=== PATIENT | male | born 1940 | race Caucasian/White ===

== ENCOUNTER 2024-09-25 07:38 | Observation (INO) ==
[2024-09-25] MEDS: NOZIN NASAL SANITIZER TP ONE (07:48)
[2024-09-25] MEDS: NS 1,000 ML IV 1,000 ML ONE ×2 (08:10→12:20)
[2024-09-25] MEDS: ANCEF VIAL 1 GRAM ONE (08:56)
[2024-09-25] MEDS: NS 100 ML IV 100 ML ONE (08:56)
[2024-09-25] MEDS ORDERED: KETAMINE HCL ONE (08:59)
[2024-09-25] MEDS: VERSED ONE (08:59)
[2024-09-25] MEDS: DIPRIVAN VIAL 20 ML ONE ×2 (08:59→13:14)
[2024-09-25] MEDS: PRECEDEX INJ VIAL ONE (08:59)
[2024-09-25] MEDS ORDERED: PRECEDEX INJ VIAL ONE (08:59)
[2024-09-25] MEDS: FENTANYL VIAL INJ 100 mcg ONE ×2 (08:59→13:14)
[2024-09-25] MEDS: EPHEDRINE SULFATE INJ ONE (09:22)
[2024-09-25] MEDS: VISIPAQUE 100 ML ONE (09:26)
[2024-09-25] MEDS: VISIPAQUE 50 ML ONE (09:26)
[2024-09-25] MEDS: HEPARIN SODIUM IN D5W 75,000 UNITS/1,500 ML BAG ONE (09:26)
[2024-09-25] MEDS: MARCAINE 0.5% ONE ×2 (09:26→13:06)
[2024-09-25] MEDS: HEPARIN SODIUM INJ 5000 UNITS ONE (09:27)
[2024-09-25] MEDS: NEO-SYNEPHRINE INJ ONE (09:33)
--- NOTE | 2024-09-25 10:42 | OR.IMMED ---
IMMEDIATE POST-OP NOTE Immediate Post-Op Note Pre-Op Diagnosis: critical ischemia left leg Post-Op Diagnosis: same Procedure: aortogram, arteriogram left leg, could not cross popliteal occlusion Description of Procedure: dictated Surgeon/Oil Refiner: Iraj Findings: Moderately severe disease of the left superficial femoral artery, completely occluded left pop to artery, 1 vessel runoff via the peroneal artery ,I could not get across the occlusion retrogade or antegrade Estimated Blood Loss: < 50 cc Complications: none Discharge Progress Notes: to [facility] , home when ready, f/u 3 weeks , continue all home meds with the addition of aspirin 81 mg daily.
[2024-09-25] MEDS: PEPCID 20 MG VIAL ONE (12:42)
[2024-09-25] MEDS: REGLAN INJ 10 MG VIAL ONE (12:42)
[2024-09-25] MEDS ORDERED: ULTANE GAS IN ONE (12:42)
[2024-09-25] MEDS: QUELICIN (OR ANECTINE) ONE (12:42)
[2024-09-25] MEDS: ZEMURON 100 MG VIAL ONE (12:42)
[2024-09-25 12:52] VITALS: BMI 21.1
[2024-09-25] MEDS ORDERED: ZOFRAN INJ 4 MG VIAL IVP PRN (13:10)
[2024-09-25] MEDS ORDERED: BENADRYL INJ 50 MG VIAL IVP PRN (13:10)
[2024-09-25] MEDS ORDERED: DILAUDID INJ IVP PRN (13:10)
[2024-09-25] MEDS ORDERED: REGLAN INJ 10 MG VIAL IVP PRN (13:10)
[2024-09-25] MEDS ORDERED: BARHEMSYS INJ IVP PRN (13:10)
--- NOTE | 2024-09-25 13:18 | OR.IMMED ---
IMMEDIATE POST-OP NOTE Immediate Post-Op Note Date of surgery/procedure: 09/25/24 Pre-Op Diagnosis: compartmetn syndrome left leg / calf Post-Op Diagnosis: same Procedure: 4 compartment fasciotomy left calf Description of Procedure: dictated Surgeon/Service Technician Copier: Iraj Findings: as above Estimated Blood Loss: < 20 cc Complications: none Progress Notes: tp PACU and to ccu to observe bledding from the fascitomy sites andto observe the left foot and calf
[2024-09-25 13:26] LABS: BASOPHILS % (AUTO) 0.5 % (0.2-1.0); EOSINOPHILS # (AUTO) 0.1 x10^3/uL (0.0-0.2); EOSINOPHILS % (AUTO) 1.9 % (0.9-2.9); HEMATOCRIT 31.6 % (42.0-54.0); HEMOGLOBIN 10.8 g/dL (13.5-18.0); LYMPHOCYTES # (AUTO) 1.3 X10^3/uL (1.3-2.9); LYMPHOCYTES % (AUTO) 18.5 % (21.0-51.0); MEAN CORPUSCULAR HEMOGLOBIN 29.9 pg (27.0-34.0); MEAN CORPUSCULAR VOLUME 87.9 fL (80.0-100.0); MEAN PLATELET VOLUME 7.1 fL (7.4-11.0); MONOCYTES # (AUTO) 0.6 x10^3/uL (0.3-0.8); MONOCYTES % (AUTO) 9.1 % (0.0-13.0); PLATELET COUNT 122 X10^3/uL (150.0-450.0); RED BLOOD COUNT 3.59 X10^6/uL (4.7-6.0); WHITE BLOOD COUNT 7.1 X10^3/uL (3.6-10.0)
[2024-09-25] MEDS: LR 1,000 ML IV 1,000 ML IV SCH (14:26)
[2024-09-25] MEDS: PERCOCET TAB 5/325 MG PO PRN (14:54)
[2024-09-25] MEDS: PERCOCET TAB 5/325 MG ONE (16:04)
[2024-09-25] MEDS: CRESTOR TAB 10 MG PO SCH (20:54)
[2024-09-25] MEDS: NovoLIN R (or HumuLIN R) SUBCUT PRN (20:56)
[2024-09-25] MEDS: SNACK - Diabetic Appropriate PO SCH (20:59)
[2024-09-26 06:00] VITALS: O2SAT 100
[2024-09-26 06:27] LABS: BASOPHILS % (AUTO) 0.6 % (0.2-1.0); EOSINOPHILS # (AUTO) 0.2 x10^3/uL (0.0-0.2); HEMATOCRIT 23.7 % (42.0-54.0); LYMPHOCYTES # (AUTO) 0.8 X10^3/uL (1.3-2.9); LYMPHOCYTES % (AUTO) 12.1 % (21.0-51.0); MEAN CORPUSCULAR HEMOGLOBIN 29.9 pg (27.0-34.0); MEAN CORPUSCULAR HGB CONC 34.6 g/dL (33.0-35.0); MEAN CORPUSCULAR VOLUME 86.5 fL (80.0-100.0); MEAN PLATELET VOLUME 7.3 fL (7.4-11.0); MONOCYTES # (AUTO) 0.6 x10^3/uL (0.3-0.8); MONOCYTES % (AUTO) 9.7 % (0.0-13.0); NEUTROPHILS % (AUTO) 74.6 % (42.0-75.0); PLATELET COUNT 139 X10^3/uL (150.0-450.0); RED BLOOD COUNT 2.74 X10^6/uL (4.7-6.0); WHITE BLOOD COUNT 6.6 X10^3/uL (3.6-10.0)
[2024-09-26 06:48] LABS: HEMOGLOBIN 8.2 g/dL (13.5-18.0)
[2024-09-26 08:12] VITALS: PULSE 104
[2024-09-26] MEDS: ZESTRIL TAB 40 MG PO SCH (08:58)
--- NOTE | 2024-09-26 12:07 | W.DIS.FURT ---
Summary of Discharge Discharge Summary of Date Date of Exam: 09/26/24 Admission Date Date of Admission: 09/25/24 Admission Diagnosis Hospital Course: 84 year old male who has had failed intervention of the right leg arterial reconstruction and yesterday underwent attempted revascularization of the left leg. He has very dense long segment b/l popliteal artery occlusion with 1 vessel runoff via the peroneal arteries . We could get across the occlusion. We planned to discharge him home and see him in follow up but he developed acute pain in the left calf and foot with significant firmness of the left calf consistent with compartment syndrome. He was taken urgently to the operating room where he underwent 4 compartment fasciotomy. He is doing well. His pain is resolved. His feet are warm. His dressing is intact. He will be discharged today and follow up with me on Sunday the 29 of September to assess his wounds. He still will need some other plan for LE revasularization versus observation of his lower extremities as he will require Femoral distal bypasses bilaterally with the peroneal artery as the target. These have significant morbidity. discharged on his usual medications plus Percocet, 5 milligram tablets 1 every 6 hourS PRN pain Vital Signs: Vital Signs (72 hours) 09/25/24 07:58 09/25/24 07:58 09/25/24 10:38 Temperature 97.7 F Pulse Rate 102 H 102 H 89 Respiratory Rate 20 17 Blood Pressure 160/82 127/68 O2 Sat by Pulse Oximetry 98 99 Oxygen Delivery Method Room Air Room Air Oxygen Flow Rate 09/25/24 10:50 09/25/24 11:05 09/25/24 11:20 Temperature Pulse Rate 84 87 81 Respiratory Rate 18 18 17 Blood Pressure 125/64 124/61 122/63 O2 Sat by Pulse Oximetry 98 99 99 Oxygen Delivery Method Room Air Room Air Room Air Oxygen Flow Rate 09/25/24 11:35 09/25/24 11:50 09/25/24 12:05 Temperature Pulse Rate 76 76 78 Respiratory Rate 17 18 18 Blood Pressure 119/60 131/66 128/60 O2 Sat by Pulse Oximetry 99 99 99 Oxygen Delivery Method Room Air Room Air Room Air Oxygen Flow Rate 09/25/24 12:40 09/25/24 14:13 09/25/24 14:14 Temperature Pulse Rate 88 Respiratory Rate Blood Pressure 150/71 O2 Sat by Pulse Oximetry 100 Oxygen Delivery Method Room Air Oxygen Flow Rate 09/25/24 14:14 09/25/24 14:15 09/25/24 13:23 Temperature 97.5 F L 97.0 F L Pulse Rate 93 H 93 H 120 H Respiratory Rate 16 Blood Pressure 149/65 O2 Sat by Pulse Oximetry 100 100 100 Oxygen Delivery Method Aerosol Face Tent Oxygen Flow Rate 09/25/24 13:28 09/25/24 13:33 09/25/24 13:38 Temperature Pulse Rate 119 H 119 H 119 H Respiratory Rate 16 17 17 Blood Pressure 129/71 118/71 128/81 O2 Sat by Pulse Oximetry 100 96 99 Oxygen Delivery Method Aerosol Face Tent Aerosol Face Tent Aerosol Face Tent Oxygen Flow Rate 09/25/24 13:43 09/25/24 13:48 09/25/24 13:53 Temperature Pulse Rate 101 H 101 H 99 H Respiratory Rate 16 16 16 Blood Pressure 128/81 132/76 124/70 O2 Sat by Pulse Oximetry 99 99 99 Oxygen Delivery Method Nasal Cannula Nasal Cannula Nasal Cannula Oxygen Flow Rate 09/25/24 13:58 09/25/24 14:54 09/25/24 15:54 Temperature Pulse Rate 96 H Respiratory Rate 16 20 18 Blood Pressure 139/78 O2 Sat by Pulse Oximetry 99 Oxygen Delivery Method Nasal Cannula Oxygen Flow Rate 09/25/24 14:15 09/25/24 14:30 09/25/24 14:45 Temperature 97.5 F L 97.5 F L Pulse Rate 99 H 91 H 89 Respiratory Rate 17 16 14 Blood Pressure 150/71 149/75 149/75 O2 Sat by Pulse Oximetry 99 100 100 Oxygen Delivery Method Oxygen Flow Rate 09/25/24 15:00 09/25/24 16:08 09/25/24 16:14 Temperature 97.4 F L Pulse Rate 97 H 112 H 102 H Respiratory Rate 18 20 20 Blood Pressure 154/77 133/77 119/71 O2 Sat by Pulse Oximetry 100 100 100 Oxygen Delivery Method Oxygen Flow Rate 09/25/24 17:00 09/25/24 14:30 09/25/24 14:31 Temperature Pulse Rate 91 H 89 89 Respiratory Rate 20 11 L 14 Blood Pressure 109/58 O2 Sat by Pulse Oximetry 100 100 100 Oxygen Delivery Method Oxygen Flow Rate 09/25/24 14:31 09/25/24 14:45 09/25/24 15:00 Temperature Pulse Rate 87 Respiratory Rate Blood Pressure 149/75 154/77 O2 Sat by Pulse Oximetry 100 Oxygen Delivery Method Oxygen Flow Rate 09/25/24 15:00 09/25/24 15:00 09/25/24 15:15 Temperature Pulse Rate 97 H 96 H Respiratory Rate 23 31 H Blood Pressure 154/77 O2 Sat by Pulse Oximetry 100 100 Oxygen Delivery Method Oxygen Flow Rate 09/25/24 15:30 09/25/24 15:30 09/25/24 15:45 Temperature Pulse Rate 112 H 116 H Respiratory Rate Blood Pressure 133/77 O2 Sat by Pulse Oximetry 98 100 Oxygen Delivery Method Oxygen Flow Rate 09/25/24 16:00 09/25/24 16:00 09/25/24 16:15 Temperature Pulse Rate 98 H 98 H Respiratory Rate Blood Pressure 119/71 O2 Sat by Pulse Oximetry 100 100 Oxygen Delivery Method Oxygen Flow Rate 09/25/24 16:30 09/25/24 16:30 09/25/24 16:45 Temperature Pulse Rate 95 H 91 H Respiratory Rate Blood Pressure 109/58 O2 Sat by Pulse Oximetry 100 100 Oxygen Delivery Method Oxygen Flow Rate 09/25/24 17:00 09/25/24 17:00 09/25/24 17:00 Temperature Pulse Rate 94 H Respiratory Rate Blood Pressure 119/61 119/61 O2 Sat by Pulse Oximetry 100 Oxygen Delivery Method Oxygen Flow Rate 09/25/24 17:15 09/25/24 17:30 09/25/24 17:30 Temperature Pulse Rate 94 H 91 H Respiratory Rate Blood Pressure 129/63 O2 Sat by Pulse Oximetry 100 100 Oxygen Delivery Method Oxygen Flow Rate 09/25/24 17:45 09/25/24 18:00 09/25/24 20:55 Temperature 97.6 F Pulse Rate 99 H 102 H Respiratory Rate 20 Blood Pressure 116/56 O2 Sat by Pulse Oximetry 100 98 Oxygen Delivery Method Nasal Cannula Oxygen Flow Rate 2 09/25/24 19:15 09/25/24 19:00 09/25/24 20:00 Temperature 97.5 F L Pulse Rate 103 H 101 H Respiratory Rate 18 18 Blood Pressure 100/55 112/55 O2 Sat by Pulse Oximetry 100 100 Oxygen Delivery Method Nasal Cannula Nasal Cannula Oxygen Flow Rate 2 2 09/26/24 00:00 09/25/24 21:55 09/26/24 04:00 Temperature 97.6 F 97.7 F Pulse Rate 96 H 98 H Respiratory Rate 19 19 20 Blood Pressure 116/58 105/52 O2 Sat by Pulse Oximetry 98 100 Oxygen Delivery Method Nasal Cannula Nasal Cannula Oxygen Flow Rate 2 2 09/25/24 20:30 09/25/24 20:45 09/25/24 21:00 Temperature Pulse Rate 105 H 104 H Respiratory Rate Blood Pressure 108/53 O2 Sat by Pulse Oximetry 100 100 Oxygen Delivery Method Oxygen Flow Rate 09/25/24 21:00 09/25/24 21:15 09/25/24 21:30 Temperature Pulse Rate 96 H Respiratory Rate Blood Pressure 133/62 112/52 O2 Sat by Pulse Oximetry 100 Oxygen Delivery Method Oxygen Flow Rate 09/25/24 21:30 09/25/24 21:45 09/25/24 22:00 Temperature Pulse Rate 95 H 94 H 96 H Respiratory Rate Blood Pressure O2 Sat by Pulse Oximetry 100 100 100 Oxygen Delivery Method Oxygen Flow Rate 09/25/24 22:00 09/25/24 22:15 09/25/24 22:30 Temperature Pulse Rate 129 H 101 H Respiratory Rate Blood Pressure 109/52 O2 Sat by Pulse Oximetry 98 100 Oxygen Delivery Method Oxygen Flow Rate 09/25/24 22:30 09/25/24 22:45 09/25/24 23:00 Temperature Pulse Rate 117 H 100 H Respiratory Rate 21 26 H Blood Pressure 111/59 O2 Sat by Pulse Oximetry 100 100 Oxygen Delivery Method Oxygen Flow Rate 09/25/24 23:01 09/25/24 23:01 09/25/24 23:15 Temperature Pulse Rate 101 H 92 H Respiratory Rate 19 17 Blood Pressure 129/61 O2 Sat by Pulse Oximetry 100 100 Oxygen Delivery Method Oxygen Flow Rate 09/25/24 23:30 09/25/24 23:30 09/25/24 23:45 Temperature Pulse Rate 98 H 90 Respiratory Rate 21 14 Blood Pressure 115/59 O2 Sat by Pulse Oximetry 100 100 Oxygen Delivery Method Oxygen Flow Rate 09/26/24 00:00 09/26/24 00:00 09/26/24 00:15 Temperature Pulse Rate 96 H 97 H Respiratory Rate 19 20 Blood Pressure 116/58 O2 Sat by Pulse Oximetry 100 100 Oxygen Delivery Method Oxygen Flow Rate 09/26/24 00:30 09/26/24 00:31 09/26/24 00:31 Temperature Pulse Rate 98 H 99 H Respiratory Rate 26 H 24 Blood Pressure 114/52 O2 Sat by Pulse Oximetry 100 100 Oxygen Delivery Method Oxygen Flow Rate 09/26/24 00:45 09/26/24 01:00 09/26/24 01:00 Temperature Pulse Rate 89 92 H Respiratory Rate 13 13 Blood Pressure 106/55 O2 Sat by Pulse Oximetry 100 100 Oxygen Delivery Method Oxygen Flow Rate 09/26/24 01:15 09/26/24 01:30 09/26/24 01:30 Temperature Pulse Rate 91 H 93 H Respiratory Rate 13 16 Blood Pressure 100/54 O2 Sat by Pulse Oximetry 100 100 Oxygen Delivery Method Oxygen Flow Rate 09/26/24 01:45 09/26/24 02:00 09/26/24 02:00 Temperature Pulse Rate 85 88 Respiratory Rate 6 L 16 Blood Pressure 92/49 O2 Sat by Pulse Oximetry 100 100 Oxygen Delivery Method Oxygen Flow Rate 09/26/24 02:15 09/26/24 02:23 09/26/24 06:30 Temperature Pulse Rate 87 126 H Respiratory Rate 14 20 Blood Pressure 112/56 O2 Sat by Pulse Oximetry 100 97 Oxygen Delivery Method Oxygen Flow Rate 09/26/24 06:33 09/26/24 06:45 09/26/24 07:00 Temperature Pulse Rate 91 H 98 H Respiratory Rate 14 15 Blood Pressure 109/53 O2 Sat by Pulse Oximetry 100 100 Oxygen Delivery Method Oxygen Flow Rate 09/26/24 07:00 09/26/24 07:18 09/26/24 07:30 Temperature Pulse Rate 112 H 129 H 103 H Respiratory Rate 25 H 39 H 31 H Blood Pressure O2 Sat by Pulse Oximetry 99 100 Oxygen Delivery Method Oxygen Flow Rate 09/26/24 07:31 09/26/24 07:31 09/26/24 07:45 Temperature Pulse Rate 122 H 115 H Respiratory Rate 33 H 28 H Blood Pressure 103/59 O2 Sat by Pulse Oximetry 86 L 96 Oxygen Delivery Method Oxygen Flow Rate 09/26/24 08:00 09/26/24 08:00 09/26/24 07:00 Temperature 97.7 F Pulse Rate 104 H Respiratory Rate 24 Blood Pressure 97/51 O2 Sat by Pulse Oximetry 100 Oxygen Delivery Method Nasal Cannula Oxygen Flow Rate 2 Labs: Laboratory Last Values WBC 6.6 X10^3/uL (3.6-10.0) 09/26/24 05:54 RBC 2.74 X10^6/uL (4.7-6.0) L 12/13/24 05:54 Hgb 8.2 g/dL (13.5-18.0) L D 09/26/24 05:54 Hct 23.7 % (42.0-54.0) L 09/26/24 05:54 MCV 86.5 fL (80.0-100.0) 09/26/24 05:54 MCH 29.9 pg (27.0-34.0) 09/26/24 05:54 MCHC 34.6 g/dL (33.0-35.0) 09/26/24 05:54 RDW 15.0 % (11.6-16.5) 09/26/24 05:54 Plt Count 139 X10^3/uL (150.0-450.0) L 09/26/24 05:54 MPV 7.3 fL (7.4-11.0) L 09/26/24 05:54 Neut % (Auto) 74.6 % (42.0-75.0) 09/26/24 05:54 Lymph % (Auto) 12.1 % (21.0-51.0) L 09/26/24 05:54 [place] % (Auto) 9.7 % (0.0-13.0) 09/26/24 05:54 Eos % (Auto) 3.0 % (0.9-2.9) H 09/26/24 05:54 Baso % (Auto) 0.6 % (0.2-1.0) 09/26/24 05:54 Neut # (Auto) 5.0 x10^3/uL (2.2-4.8) H 09/26/24 05:54 Lymph # (Auto) 0.8 X10^3/uL (1.3-2.9) L 09/26/24 05:54 [place] # (Auto) 0.6 x10^3/uL (0.3-0.8) 09/26/24 05:54 Eos # (Auto) 0.2 x10^3/uL (0.0-0.2) 09/26/24 05:54 Baso # (Auto) 0.0 X10^3/uL (0.0-0.1) 09/26/24 05:54 Absolute Nucleated RBC 0.0 /100WBC 09/26/24 05:54 POC Glucose (mg/dL) 198 mg/dL (65-99) H 09/26/24 06:21 Blood Type A POSITIVE 09/25/24 08:09 Antibody Screen Negative 09/25/24 08:09 Reason For Visit: AORTOGRAM, ARTERIOGRAM LEFT LEG Discharge Diagnosis All Active Problems (Updated 09/26/24 @ 11:53 by Anatoliy Galo) Compartment syndrome of lower extremity (Acute) SSS (sick sinus syndrome) (Acute) Pacemaker (Acute) Abdominal wall hernia (Acute) GERD (gastroesophageal reflux disease) (Acute) Hypertension (Acute) Mixed hyperlipidemia (Acute) Type 2 diabetes mellitus (Acute) H/O type 2 diabetes mellitus (Acute) H/O mixed hyperlipidemia (Acute) H/O gastroesophageal reflux (GERD) (Acute) H/O essential hypertension (Acute) CAD (coronary artery disease) of artery bypass graft (Acute) Plan of Treatment: Continue with present treatment and follow up plan. Pt is to keep follow up appointment as instructed and take medications as ordered. Discharge Medications Discharge Medications: No Known Allergies Allergy (Verified 02/14/24 09:43) Discharge Disposition Assessment: SEE HOSPITAL COURSE Discharge Plan Discharge Plan Hospital Course: 84 year old male who has had failed intervention of the right leg arterial reconstruction and yesterday underwent attempted revascularization of the left leg. He has very dense long segment b/l popliteal artery occlusion with 1 vessel runoff via the peroneal arteries . We could get across the occlusion. We planned to discharge him home and see him in follow up but he developed acute pain in the left calf and foot with significant firmness of the left calf consistent with compartment syndrome. He was taken urgently to the operating room where he underwent 4 compartment fasciotomy. He is doing well. His pain is resolved. His feet are warm. His dressing is intact. He will be discharged today and follow up with me on Sunday the 29 of September to assess his wounds. He still will need some other plan for LE revasularization versus observation of his lower extremities as he will require Femoral distal bypasses bilaterally with the peroneal artery as the target. These have significant morbidity. discharged on his usual medications plus Percocet, 5 milligram tablets 1 every 6 hourS PRN pain Patient Disposition: HOME, SELF-CARE Condition: Stable Health Concerns: Post Hospitalization: new medications and changes needed to prevent readmission or further decline. Pt educated and given instructions on all concerns. Care Plan Goals: Problem: Pain/Alteration in Comfort Goal: Improve/ Resolve Pain; Achieve Pain Tolerance Instructions: Take pain medications as prescribed. Contact your primary care provider if your pain is unrelieved or worsens. Follow up with primary care provider as directed. Plan of Treatment: Continue with present treatment and follow up plan. Pt is to keep follow up appointment as instructed and take medications as ordered. Assessment: SEE HOSPITAL COURSE Prescription drug monitoring program results: PDMP reviewed and no concerns identified Prescriptions: New oxycodone-acetaminophen [Percocet] 5-325 mg tablet 1 tab PO Q6H MDD 4 PRNQty: 20 0RF Continued (DME) OneTouch Verio test strips Strip See Rx Instructions .ROUTE TID Qty: 100 10RF Rx Instructions: As directed check glucose once or twice or as needed lisinopril 40 mg tablet 40 mg PO QDAY 90 Days Qty: 90 1RF Repatha SureClick 140 mg/mL pen injector 140 mg subcut Q2W 28 Days Qty: 2 5RF Januvia 100 mg tablet 100 mg PO QDAY 90 Days Qty: 90 2RF rosuvastatin 20 mg tablet 20 mg PO QDAY 90 Days Qty: 90 1RF insulin glargine [Lantus Solostar U-100 Insulin] 100 unit/mL (3 mL) insulin pen 25 unit subcut BID 28 Days Qty: 30 1RF dapagliflozin propanediol [Farxiga] 5 mg tablet 5 mg PO QDAY clopidogrel 75 mg tablet 75 mg PO QDAY ketoconazole 2 % cream 1 applic topical BID omeprazole 20 mg capsule,delayed release(DR/EC) 20 mg PO QDAY Qty: 90 0RF carvedilol 6.25 mg tablet 6.25 mg PO BID 90 Days Qty: 180 0RF Rx Instructions: must administer with a meal/food Orders to Discharge Patient Discharge Orders: Discharge (Routine); Ordered 09/26/24 Ordered By: Anatoliy Galo Follow ups/Referrals Follow ups/Referrals: Anatoliy Galo [STAFF PHYSICIAN] - 09/29/24 1:45 pm Instructions Instructions: Aspirin, ASA chewable tablets, Monitored Anesthesia Care, Endovascular Therapy for Peripheral Vascular Disease: What to Know After Activity Restrictions/Additional Instructions: POST OPERATIVE INSTRUCTIONS: (1) A RESPONSIBLE ADULT SHOULD REMAIN WITH YOU TODAY, YOU SHOULD BE ASSISTED TO THE BATHROOM FOR 6-8 HOURS. REST QUIETLY THE REMAINDER OF THE DAY. (2) DEEP BREATHING AND COUGHING EXERCISES FOR THE NEXT 6-8 HOURS. (3)SMOKE ONLY IF SOMEONE IS WITH YOU FOR THE NEXT 12 HOURS. (4) DIET TOLERATED, DRINK PLENTY OF WATER. (5) DO NOT DRIVE YOUR AUTOMOBILE OR OPERATE MACHINERY FOR 12-18 HOURS AFTER RECEIVING A GENERAL ANESTHETIC OR WHILE TAKING NARCOTIC PAIN MEDICATION. (6) SOME ANESTHETIC AGENTS AND MEDICATION TAKEN FOR PAIN MAY CAUSE NAUSEA. IF NAUSEA PERSISTS FOR SEVERAL HOURS AT HOME, CALL YOUR DOCTOR. (7) LIGHT ACTIVITIES. (8) OBSERVE OPERATIVE AREA FOR SIGNS OF INFECTION: REDNESS, SWELLING, FOUL ODOR, DRAINAGE, AND NOTIFY FOR ANY CONCERNS OR FEVER OVER 101.0. (9) KEEP OPERATIVE AREA CLEAN AND DRY. YOU MAY REMOVE DRESSING AFTER 24 HOURS AND SHOWER/BATH WITH ANTIBACTERIAL SOAP. (10) RESUME ALL PREVIOUS MEDICATIONS PRESCRIBED BY YOUR DOCTOR. (11) TAKE PAIN MEDICATIONS PRESCRIBED. (12) Begin taking aspirin 81 mg by mouth daily (12) OBSERVE AFFECTED AREA FOR CIRCULATION, CHANGE OF COLOR, NUMBNESS OR TINGLING, COLDNESS, INCREASED PAIN, OR BLEEDING. FOR ANY COMPLICATIONS PLEASE CALL DR. GALO @ PRIOR TO GOING TO EMERGENCY DEPARTMENT. FOLLOW UP WITH DR. GALO ON October 20 at 10:45am Stand Alone Forms: Find Help Web Site, Post Hospital Follow Up Care
[2024-09-26 12:42] VITALS: BP 95/53; RESP 18; TEMP 98.9
[2024-09-26] MEDS: COREG TAB 6.25 MG PO ONE (12:58)
--- NOTE | 2024-09-28 11:22 | DR.OPNOTE ---
OP NOTE Pre-Op Diagnosis: critical ischemia left leg Post-Op Diagnosis: same Procedure Date Date Of Procedure: 09/25/24 Procedure: PROCEDURE: DIAGNOSTIC AORTOGRAM, DIAGNOSTIC ARTERIOGRAM LEFT LEG NARRATIVE : The patient was taken to the operative suite and placed in the supine position. The right groin and entire left leg were prepped and draped in sterile fashion. The patient was given intravenous sedation supervised by myself. Time out for the procedure obtained. Ultrasound used to identify the right femoral artery and the skin overlying it infiltrated with 0.5% Marcaine. Ultrasound then used to guide puncture of the right femoral artery and a 0.012 inch guide wire was placed. Incision made over the guide wire at the skin edge with a # 11 knife blade and a micro sheath placed over the guide wire into the right femoral artery. The small guidewire exchanged for a 0.035 inch Advantage glide wire and the micro sheath exchanged for a 5 Fr vascular sheath. Patient given 5000 units of intravenous heparin. Omni catheter was placed over the guide wire into the aorta and diagnostic aortogram carried out with the power injector showing normal aorta and iliac arteries . Omni catheter was used to steer the guide wire down the left common iliac artery to the distal left external iliac artery . Omni catheter was exchanged for a [place] catheter and sequential arteriograms carried out of the left lower extremity showing severely diseased left distal superficial femoral artery , occluded left popliteal artery , one vessel runoff via the left peroneal artery . The 5 Fr sheath in the right groin then exchanged for a 7 Fr destination sheath which was parked in proximal left superficial femoral artery . Ruubicon catheter and the guide wire were used to traverse the arteries of the left leg ultimately ending in the left distal superficial femoral artery . This was selective catheterization. Despite multiple attempts we could not cross the popliteal occlusion. We tried retrograde approach but could not get into the left peroneal . All wires and devices removed. The 7 Fr sheath was pulled back into the aorta and a 0.035 inch wire placed. The destination sheath exchanged for an Angioseal device used to close the puncture of the right femoral artery. .Dressing applied to the left groin. The patient taken to Same Day Surgery in good condition. Type of Anesthesia: Local (0.5% Marcaine ) Findings: severely diseased left superficial femoral artery occluded left popliteal artery , one vessel runoff via left peroneal artery Type of Fluids Used:: Lactated Ringers Total Amount of Fluid Infused:: 900cc Urine output: 300cc EBL: 50 cc Complications:: none Needle/Sponge Count:: correct Disposition/Condition: Pt. tolerated procedure without difficulty. Taken to [facility] in stable condition.
--- NOTE | 2024-09-28 11:58 | DR.OPNOTE ---
OP NOTE Pre-Op Diagnosis: compartment syndrome left leg Post-Op Diagnosis: same Procedure Date Date Of Procedure: 09/25/24 Procedure: PROCEDURE: Left leg 4 compartment fasciotomy NARRATIVE: The patient was taken to the operative suite and placed in the supine position. General endotracheal anesthesia induced. The entire left leg prepped and draped in sterile fashion. 0.5% Marcaine was injected along the lateral edge of the calf over the fibula and a 4 cm incision made with a number 15 knife blade. Cautery used to dissect down to the fascia. The fascia of the anterior tibial and lateral compartments opened with Metsenbaum scissors along their entire length. Incision made over the medial lef calf afer infiltrating the skin with 0.5% Marcaine and 4 cenimeter incision made. Disssection carried down to the fascia of the superficial posterior compartment which was opened with scissors along its length. Dissection carried down to the posterior deep compartment and the fascia opened along its length with Metzenbaum scissors . Hemostasis obtained with electrocautery . Both wounds packed with saline soaked gauze and covered with Kerlix wrap and Tyrone wrap. Type of Anesthesia: Local (0.5% Marcaine ) and General Anesthetic w/ETT Findings: as above Type of Fluids Used:: Lactated Ringers EBL: minimal Complications:: none Needle/Sponge Count:: correct Disposition/Condition: Pt. tolerated procedure without difficulty. Extubated in the OR and taken to PACU in stable condition.
== END 2024-09-26 13:30 | disposition home or self-care (01) ==
LOC: SURG1 07:38 → ICU 07:38
PROVIDERS: ADMIT Surgery; ATTEND Surgery